=== PATIENT | female | born 1985 | race Two or more races ===

== ENCOUNTER → 2023-05-21 08:10 | Outpatient (REF) | payer OTHER, SELFPAY | LOC: RSP 08:10 | PROVIDERS: ATTENDING PHYSICIAN Family Medicine | DX: R06.09 Other forms of dyspnea (principal) | CPT/HCPCS: 94727; 94729; 88738; 94010 ==

== ENCOUNTER → 2023-10-22 18:05 | Outpatient (REF) | payer OTHER, SELFPAY | LOC: RCS 18:05 | PROVIDERS: ATTENDING PHYSICIAN Family Medicine | DX: R07.89 Other chest pain (principal); R53.83 Other fatigue; R06.09 Other forms of dyspnea | CPT/HCPCS: 93306 ==

== ENCOUNTER → 2024-02-19 17:34 | Outpatient (REF) | payer OTHER, SELFPAY | LOC: MRI 17:34 | PROVIDERS: ATTENDING PHYSICIAN Otolaryngology; FAMILY PHYSICIAN Family Medicine | DX: R51.9 Headache, unspecified (principal); R42 Dizziness and giddiness | CPT/HCPCS: 70553; A9575 ==

== ENCOUNTER → 2024-04-30 17:11 | Outpatient (REF) | payer OTHER, SELFPAY | LOC: WDC 17:11 | PROVIDERS: ATTENDING PHYSICIAN Family Medicine | DX: Z12.31 Encounter for screening mammogram for malignant neoplasm of breast (principal) | CPT/HCPCS: 77063; 77067 ==